=== PATIENT | female | born 1985 | race African-American/Black ===

== ENCOUNTER 2017-02-22 10:56 | Emergency (ER) | payer MEDICAID ==
[~2017-02-22] VITALS: Ht 160 cm; Wt 50.0 kg
[2017-02-22] MEDS ORDERED: ALBU2.5V13 IH (10:59)
[2017-02-22 13:34] LABS: BASOPHILS % 0.5 % (0.0-2.0); HEMATOCRIT. 35.5 % (36.0-48.0); HEMOGLOBIN. 11.9 g/dL (12.0-16.0); LYMPHOCYTES % 37.9 % (20.0-50.0); MEAN CORPUSCULAR HEMOGLOBIN 29.6 pg (28.0-32.0); MEAN CORPUSCULAR VOLUME 88.4 fL (81.0-99.0); MONOCYTES % 11.6 % (2.0-8.0); PLATELET 235 x1000/uL (130-400); RED BLOOD CELL COUNT 4.02 mill/uL (4.2-5.4); RED CELL DISTRIBUTION WIDTH 12.4 % (11.6-14.6)
[2017-02-22 13:43] LABS: HCG SCREEN NEGATIVE
[2017-02-22] MEDS ORDERED: PREDNISONE 20MG TABLET PO STA (13:47)
[2017-02-22] MEDS ORDERED: IPRATROPIUM BROMIDE (0.02%) 0.5MG/2.5ML NEB HHN STA (13:47)
[2017-02-22] MEDS ORDERED: ALBUTEROL (0.083%) 2.5MG/3ML NEB HHN STA (13:47)
[2017-02-22 13:48] LABS: CARBON DIOXIDE 24 mEq/L (21-32); CHLORIDE 106 mEq/L (98-107)
[2017-02-22] MEDS ORDERED: SODIUM CHLORIDE 0.9% 1,000 ML IV ONE (14:00)
[2017-02-22] MEDS ORDERED: ONDANSETRON HCL 4MG TABLET PO ONE (14:00)
[2017-02-22 15:48] LABS: T4 FREE 6.08 ng/dL (0.76-1.46)
[2017-02-22 16:33] VITALS: BP 125/68
== END 2017-02-22 16:58 | disposition home or self-care (01) ==
LOC: ER 11:16
DX: E05.90 Thyrotoxicosis, unspecified without thyrotoxic crisis or storm (principal); J45.901 Unspecified asthma with (acute) exacerbation; R11.2 Nausea with vomiting, unspecified
CPT/HCPCS: 36415; 80053; 83690; 84439; 84443; 84703; 85025; 94640; 96360; 99284; J7030; J7512; J7611; Q0162; Z7610; 81003

== ENCOUNTER 2017-07-22 19:55 | Emergency (ER) | payer MEDICAID ==
[~2017-07-22] VITALS: Ht 165.1 cm; Wt 64.0 kg
[~2017-07-22 19:55] MED LIST: ALBU2.5V13 IH
[2017-07-22 20:01] VITALS: BP 109/57
== END 2017-07-22 22:05 | disposition left against medical advice (07) ==
LOC: ER 20:16
DX: Z53.21 Procedure and treatment not carried out due to patient leaving prior to being seen by health care provider (principal)

== ENCOUNTER 2018-09-23 02:20 | Emergency (ER) | payer MEDICAID ==
[~2018-09-23] VITALS: Ht 165.1 cm; Wt 59.0 kg
[2018-09-23 05:16] VITALS: BP 112/78
== END 2018-09-23 07:47 | disposition left against medical advice (07) ==
LOC: ER 02:20
DX: Z53.21 Procedure and treatment not carried out due to patient leaving prior to being seen by health care provider (principal)

== ENCOUNTER 2018-10-04 23:51 | Emergency (ER) | payer MEDICAID ==
[~2018-10-04] VITALS: Ht 165.1 cm; Wt 59.0 kg
[2018-10-05] VITALS: BP 112/71
== END 2018-10-05 03:31 | disposition left against medical advice (07) ==
LOC: ER 23:51
DX: Z53.21 Procedure and treatment not carried out due to patient leaving prior to being seen by health care provider (principal)

== ENCOUNTER 2019-01-29 17:38 | Emergency (ER) | payer MEDICAID ==
[~2019-01-29] VITALS: Ht 162.6 cm; Wt 54.0 kg
[2019-01-29 17:48] VITALS: BP 103/48
== END 2019-01-30 00:20 | disposition left against medical advice (07) ==
LOC: ER 23:16
DX: Z53.21 Procedure and treatment not carried out due to patient leaving prior to being seen by health care provider (principal)